=== PATIENT | male | born 1950 | race Caucasian/White ===

== ENCOUNTER 2017-09-26 15:05 | Emergency (ER) | payer MEDICARE, OTHER ==
[2017-09-26 16:32] LABS: ABSOLUTE EOSINOPHILS # (AUTO) 0.2 10^3/uL (0.0-0.6); ABSOLUTE LYMPHOCYTES (AUTO) 1.7 10^3/uL (0.5-4.7); ABSOLUTE MONOCYTES (AUTO) 0.7 10^3/uL (0.1-1.4); ABSOLUTE NEUT (AUTO) 7.1 10^3/uL (1.7-8.2); BASOPHILS % (AUTO) 0.4 % (0-2); EOSINOPHILS % (AUTO) 1.8 % (0-6); HEMATOCRIT 48.5 % (37.9-51.0); HEMOGLOBIN 16.8 g/dL (13.5-17.0); HGB HCT DIFFERENCE 1.9; LYMPHOCYTES % (AUTO) 17.8 % (13-45); MEAN CORPUSCULAR HGB CONC 34.6 g/dL (32.0-36.0); MEAN CORPUSCULAR VOLUME 90 fl (80-97); MONOCYTES % (AUTO) 7.2 % (3-13); RED BLOOD COUNT 5.42 10^6/uL (4.35-5.55); RED CELL DISTRIBUTION WIDTH 13.2 % (11.5-14.0); SEGMENTED NEUTROPHILS % (AUTO) 72.8 % (42-78); WHITE BLOOD COUNT 9.8 10^3/uL (4.0-10.5)
[2017-09-26 16:47] LABS: ALANINE AMINOTRANSFERASE 130 U/L (21-72); ALBUMIN 5.2 g/dL (3.5-5.0); ALKALINE PHOSPHATASE 119 U/L (38-126); ANION GAP 16 (5-19); ASPARTATE AMINO TRANSFERASE 174 U/L (17-59); BILIRUBIN,DIRECT 1.6 mg/dL (0.0-0.4); BILIRUBIN,TOTAL 2.2 mg/dL (0.2-1.3); BLOOD UREA NITROGEN 16 mg/dL (7-20); CALCIUM 10.5 mg/dL (8.4-10.2); CARBON DIOXIDE 26 mmol/L (22-30); CHLORIDE 103 mmol/L (98-107); CREATINE KINASE 161 U/L (55-170); CREATININE RESULT 0.95 mg/dL (0.52-1.25); GLUCOSE 134 mg/dL (75-110); POTASSIUM 5.2 mmol/L (3.6-5.0); SODIUM 145.1 mmol/L (137-145); TOTAL PROTEIN 8.6 g/dL (6.3-8.2)
--- NOTE | 2017-09-26 17:00 | RADIOLOGY REPORT (SQ) ---
EXAM DESCRIPTION: ACUTE ABDOMEN SERIES COMPLETED DATE/TIME: 09/26/2017 4:46 pm REASON FOR STUDY: abd pain COMPARISON: None. NUMBER OF VIEWS: Three views. TECHNIQUE: Frontal chest, supine abdomen and upright/decubitus abdomen radiographic images acquired. LIMITATIONS: None. FINDINGS: CHEST: Lungs clear of infiltrates. FREE AIR: None. No abnormal gas collections. BOWEL GAS PATTERN: Nonspecific, nonobstructed bowel gas pattern noting of multiple small fluid levels within a nondistended colon, suggesting diarrheal state. CALCIFICATIONS: No suspicious calcifications. HARDWARE: Lumbar spinal fusion hardware without evidence of gross complication. Partially imaged low er cervical fusion hardware. SOFT TISSUES: No gross mass or suggestion of organomegaly. BONES: No acute fracture. No worrisome bone lesions. OTHER: No other significant finding. IMPRESSION: Nonspecific, nonobstructed bowel gas pattern noting multiple small fluid levels within t he colon suggesting diarrheal state. TECHNICAL DOCUMENTATION: JOB ID: [id number] [employer]- All Rights Reserved
[2017-09-26 17:04] LABS: TROPONIN I < 0.012 ng/mL
[2017-09-26 18:44] LABS: APPEARANCE,URINE TURBID; BILIRUBIN,URINE NEGATIVE (NEGATIVE); GLUCOSE, URINE NEGATIVE (NEGATIVE); KETONES,URINE NEGATIVE (NEGATIVE); LEUKOCYTE ESTERASE,URINE NEGATIVE (NEGATIVE); NITRITE,URINE NEGATIVE (NEGATIVE); PROTEIN,URINE 30 mg/dL (NEGATIVE); URINE SPECIFIC GRAVITY 1.028
[2017-09-26] MEDS ORDERED: ONDANSETRON HCL INJ/PF 4 MG/2 ML SDV IV ONE (19:18)
[2017-09-26] MEDS ORDERED: NORMAL SALINE 1000 ML 1,000 ML IV ONE (19:18)
[2017-09-26] MEDS ORDERED: MORPHINE SULFATE 10 MG/ML INJ IV ONE (19:18)
--- NOTE | 2017-09-26 19:20 | ER Document Report ---
ED GI/ - General Chief Complaint: Abdominal Pain >50 Stated Complaint: ABDOMINAL PAIN Time Seen by Provider: 09/26/17 15:59 Notes: Patient is a 67-year-old male comes emergency department for chief complaint of upper abdominal pain, vomiting, and diarrhea. Symptoms started this morning. He has vomited twice, nonbloody, he has had several loose stools. He still reports chills. He denies shortness of breath, chest pain, flank pain. Past medical history of chronic back pain, arthritis, GERD, hypertension. Denies any abdominal surgeries. TRAVEL OUTSIDE OF THE [place] IN LAST 30 DAYS: Yes - Related Data Allergies/Adverse Reactions: latex Allergy (Verified 09/26/17 15:06) Home Medications: Current Home Medications Lisinopril 10 mg PO DAILY 09/26/17 [History] Meloxicam 15 mg PO DAILY 09/26/17 [History] Omeprazole Magnesium [Prilosec Otc] 20 mg PO DAILY 09/26/17 [History] Past Medical History - General Information source: Patient - Social History Smoking Status: Never Smoker Chew tobacco use (# tins/day): No Frequency of alcohol use: None Drug Abuse: None Lives with: Family Family History: Reviewed & Not Pertinent Patient has suicidal ideation: No Patient has homicidal ideation: No - Past Medical History Cardiac Medical History: Reports: Hx Hypertension Renal/ Medical History: Denies: Hx Peritoneal Dialysis GI Medical History: Reports: Hx Gastroesophageal Reflux Disease Past Surgical History: Reports: Hx Orthopedic Surgery - back and neck sx - Immunizations Immunizations up to date: Yes Hx Diphtheria, Pertussis, Tetanus Vaccination: Yes Review of Systems - Review of Systems Constitutional: See HPI EENT: No symptoms reported Cardiovascular: No symptoms reported Respiratory: No symptoms reported Gastrointestinal: See HPI Genitourinary: No symptoms reported Male Genitourinary: No symptoms reported Musculoskeletal: No symptoms reported Skin: No symptoms reported Hematologic/Lymphatic: No symptoms reported Neurological/Psychological: No symptoms reported Physical Exam - Vital signs Vitals: Temp Pulse Resp BP Pulse Ox 98.5 F 93 18 129/72 H 94 09/26/17 15:41 09/26/17 15:41 09/26/17 15:41 09/26/17 15:41 09/26/17 15:41 Interpretation: Normal - General General appearance: Appears well, Alert In distress: None - HEENT Head: Normocephalic, Atraumatic Eyes: Normal Pupils: PERRL - Respiratory Respiratory status: No respiratory distress Chest status: Nontender Breath sounds: Normal Chest palpation: Normal - Cardiovascular Rhythm: Regular. No: Tachycardia Heart sounds: Normal auscultation, S1 appreciated, S2 appreciated Murmur: No - Abdominal Inspection: Normal Distension: No distension Bowel sounds: Normal Tenderness: Tender - Mild generalized upper abdominal pain, nonspecific, no guarding, no rebound tenderness. No: Guarding - Back Back: Normal, Nontender. No: Tender - Extremities General upper extremity: Normal inspection, Nontender, Normal color, Normal ROM , Normal temperature General lower extremity: Normal inspection, Nontender, Normal color, Normal ROM , Normal temperature, Normal weight bearing. No: Tristan's sign - Neurological Neuro grossly intact: Yes Cognition: Normal Orientation: AAOx4 [place] Coma Scale Eye Opening: Spontaneous [place] Coma Scale Verbal: Oriented [place] Coma Scale Motor: Obeys Commands [place] Coma Scale Total: 15 Speech: Normal Motor strength normal: LUE, RUE, LLE, RLE Sensory: Normal - Psychological Associated symptoms: Normal affect, Normal mood - Skin Skin Temperature: Warm Skin Moisture: Dry Skin Color: Normal Course - Re-evaluation Re-evalutation: Patient has mild generalized upper abdominal pain, elevated LFTs, some elevation of bilirubin. Nonspecific. Alk phos is normal, lipase is normal. Not definitely an obstructive pattern. Patient looks generally uncomfortable but not toxic. Patient given IV fluids, Zofran, pain medication. CBC unremarkable. Ultrasound shows no gallstones, pericholecystic fluid, or wall thickening. There is no overt evidence of obstruction although difficult to visualize ducts. On reevaluation patient is asking to eat, states he feels good and he wants to go home. Overall clinical picture does not suggest that he has choledocholithiasis, definitely not cholangitis. Suspect chronic LFT elevation from noted hepatic steatosis on ultrasound. Patient was given Pepcid, fluids, bland food. He tolerated this without any difficulty. He states he feels great and wants to go home. Patient provided with a copy of his labs, instructed to have close follow-up, discussed return precautions in detail with patient and family. They state understanding and agreement. - Vital Signs Vital signs: Temp Pulse Resp BP Pulse Ox 99.1 F 115 H 17 123/64 93 09/26/17 22:06 09/26/17 22:06 09/26/17 22:06 09/26/17 22:06 09/26/17 22:06 - Laboratory Result Diagrams: 09/26/17 16:20 09/26/17 16:20 Laboratory results interpreted by me: 09/26/17 09/26/17 16:20 16:56 Sodium 145.1 H Potassium 5.2 H Glucose 134 H Calcium 10.5 H Total Bilirubin 2.2 H Direct Bilirubin 1.6 H AST 174 H ALT 130 H Total Protein 8.6 H Albumin 5.2 H Urine Protein 30 H Urine Urobilinogen 2.0 H Discharge - Discharge Clinical Impression: Vomiting and diarrhea Abdominal pain Qualifiers: Abdominal location: generalized Qualified Code(s): R10.84 - Generalized abdominal pain Condition: Stable Disposition: HOME, SELF-CARE Additional Instructions: Your vomiting, diarrhea, generalized abdominal pain, chills, and evaluation are most suggestive of a viral syndrome. At this time his examination does not indicate a surgical abnormality. Recommendation is to use the Zofran for nausea , take Pepcid to help settle your stomach, start with clear fluids and bland foods and slowly progress. Your ultrasound shows hepatic steatosis and your liver laboratory evaluation needs to be repeated for additional monitoring and management. Please follow- up with your primary care provider closely for this. Return the emergency department if you worsen in anyway including severe pain in the abdomen, uncontrolled vomiting, vomiting blood, black stools, or any other concerning or worsening symptoms. Prescriptions: Famotidine [Pepcid 20 mg Tablet] 20 mg PO BID #12 tablet Ondansetron [Zofran Odt 4 mg Tablet] 1 - 2 tab PO Q4H PRN #15 tab.rapdis PRN Reason: For Nausea/Vomiting
--- NOTE | 2017-09-26 21:06 | RADIOLOGY REPORT (SQ) ---
EXAM DESCRIPTION: U/S ABDOMEN LIMITED W/O DOP COMPLETED DATE/TIME: 09/26/2017 8:48 pm REASON FOR STUDY: RUQ and epigastric pain, vomiting, elev LFT bili COMPARISON: None. TECHNIQUE: Dynamic and static grayscale images acquired of the abdomen and recorded on PACS. Additio nal selected color Doppler and spectral images recorded. LIMITATIONS: Intervening bowel gas and body habitus limit acoustic penetration. FINDINGS: PANCREAS: The visualized head and body are unremarkable. The tail is not adequately evalu ated. LIVER: Diffusely increased echogenicity consistent with fatty infiltration. No focal masses. No int rahepatic biliary dilatation. LIVER VASCULATURE: The portal vein is not adequately examined. GALLBLADDER: No stones. Normal wall thickness. No pericholecystic fluid. ULTRASOUND-DETECTED SALEH'S SIGN: Negative. INTRAHEPATIC DUCTS AND COMMON DUCT: The common bile duct is not adequately visualized. INFERIOR VENA CAVA: Not adequately visualized. AORTA: No aneurysm. RIGHT KIDNEY: Normal size. Incidental note is made of 2 simple cysts. No solid or suspicious masses . No hydronephrosis. No calcifications. PERITONEAL AND RIGHT PLEURAL SPACE: No ascites or effusions. OTHER: No other significant findings. IMPRESSION: Limited examination with limited/inadequate visualization of the tail of the pancreas, c ommon bile duct, and portal vein. No evidence of intrahepatic biliary dilatation. No evidence of ch olecystitis. Background of hepatic steatosis. TECHNICAL DOCUMENTATION: JOB ID: [id number] [email or web address]- All Rights Reserved
[2017-09-26] MEDS ORDERED: FAMOTIDINE 20 MG TABLET PO ONE (21:25)
[2017-09-26] MEDS ORDERED: KETOROLAC TROMETHAMINE INJ/PF 30 MG/1 ML SDV IV ONE (22:16)
[2017-09-26] MEDS ORDERED: ONDANSETRON ODT 4 MG TAB (6 TAB/DSPK) PO PRN (22:42)
[2017-09-26 23:26] VITALS: BP 123/64
--- NOTE | 2017-09-27 09:12 | EKG REPORT ---
SEVERITY:- ABNORMAL ECG - SINUS RHYTHM LEFT ANTERIOR FASCICULAR BLOCK LATE TRANSITION. : Confirmed by: Javi Musa MD 27-Sep-2017 09:11:32
== END 2017-09-26 23:15 | disposition home or self-care (01) ==
LOC: ER 15:05
DX: R10.10 Upper abdominal pain, unspecified (principal); R11.10 Vomiting, unspecified; R19.7 Diarrhea, unspecified; K76.0 Fatty (change of) liver, not elsewhere classified; R79.89 Other specified abnormal findings of blood chemistry; I10 Essential (primary) hypertension; Z91.040 Latex allergy status; Z87.19 Personal history of other diseases of the digestive system
CPT/HCPCS: 93005; 99285; 96361; 96374; 96375; 36415; 82553; 82550; 83690; 85025; 80053; 81001; 84484; 74022; 76705; 93010; A9270 ×2; J1885; J2270; J2405; J7030